=== PATIENT | female | born 1950 | race Caucasian/White ===

== ENCOUNTER 2022-04-21 12:43 | Emergency (ER) | payer MEDICARE, OTHER ==
[~2022-04-21 12:43] MED LIST: ACETAMINOPHEN500 M1 PO; COLESTID1 GM PO; MOBIC15 MG PO; NEXIUM 40MG CAP40 MG PO; NORVASC 10MG TA10 MG PO; OMEPRAZOLE40 MG PO; PRINIVIL20 MG PO; ZOCOR40 MG PO; [UNRECOGNIZED DRUG - OTHER] PO
[2022-04-21] MEDS ORDERED: NORCO 5-325 TA1 EACH PO (14:39)
== END 2022-04-21 15:00 | disposition home or self-care (01) ==
LOC: FER 12:43
DX: S93.401A Sprain of unspecified ligament of right ankle, initial encounter (principal); I10 Essential (primary) hypertension; X50.1XXA Overexertion from prolonged static or awkward postures, initial encounter; Y92.009 Unspecified place in unspecified non-institutional (private) residence as the place of occurrence of the external cause; Z79.899 Other long term (current) drug therapy
CPT/HCPCS: 73610